=== PATIENT | male | born 1980 | race American Indian/Alaskan Native ===

== ENCOUNTER 2019-09-30 13:40 | Emergency (ER) | payer SELFPAY ==
--- NOTE | 2019-09-30 22:26 | Cat Scan Report ---
CT HEAD WITHOUT CONTRAST INDICATION / CLINICAL INFORMATION: Pt complains of right arm numbness. TECHNIQUE: All CT scans at this location are performed using CT dose reduction for ALARA by means of automated e xposure control. COMPARISON: None available. FINDINGS: HEMORRHAGE: None. EXTRA-AXIAL SPACES: Normal in size and morphology for the patient's age. VENTRICULAR SYSTEM: Normal in size and morphology for the patient's age. CEREBRAL PARENCHYMA: No significant abnormality. No acute territorial infarct. MIDLINE SHIFT OR HERNIATION: None. CEREBELLUM / BRAINSTEM: No significant abnormality. ORBITS: Normal as visualized. SOFT TISSUES of HEAD: No significant abnormality. CALVARIUM: No significant abnormality. PARANASAL SINUSES / MASTOID AIR CELLS: Normal as visualized. ADDITIONAL FINDINGS: None. IMPRESSION: 1. No acute intracranial abnormality. Signer Name: Clinton Otoole MD Signed: 09/30/2019 10:22 PM Workstation Name: [id number]
--- NOTE | 2019-09-30 22:26 | Emergency Department Report ---
ED Neuro Deficit HPI - General Chief Complaint: Neuro Symptoms/Deficit Stated Complaint: RIGHT ARM NUNB Time Seen by Provider: 09/30/19 21:33 Source: patient Mode of arrival: Ambulatory Limitations: No Limitations - History of Present Illness Initial Comments: 39-year-old male presents to ED with numbness to the right upper arm. Patient states symptoms began today around 12[address] pm [address] Patient denies any headache or extremity weakness. Patient denies any neck pain or recent injury. -: This afternoon Location: right arm History of same: No Severity: mild Quality: tingling Improves With: none Worsens With: none On Anticoagulants: No Associated Symptoms: denies: headaches, weakness Treatments Prior to Arrival: none - Related Data Allergies/Adverse Reactions: Allergies Allergy/AdvReac Type Severity Reaction Status Date / Time No Known Allergies Allergy Unverified 09/30/19 23:25 ED Review of Systems ROS: Stated complaint: RIGHT ARM NUNB Other details as noted in HPI Comment: All other systems reviewed and negative Neurological: paresthesias. denies: headache, weakness ED Past Medical Hx - Past Medical History Previous Medical History?: No - Surgical History Past Surgical History?: No ED Neuro Physical Exam - General Limitations: No Limitations General appearance: alert, in no apparent distress Suspected Stroke: No - Head Head exam: Present: atraumatic, normocephalic - Eye Eye exam: Present: normal appearance, EOMI - ENT ENT exam: Present: mucous membranes moist - Neck Neck exam: Present: normal inspection, tenderness (Mild, midline posterior) - Respiratory Respiratory exam: Present: normal lung sounds bilaterally. Absent: respiratory distress - Cardiovascular Cardiovascular Exam: Present: regular rate, normal rhythm - GI/Abdominal GI/Abdominal exam: Absent: distended - Extremities Exam Extremities exam: Present: normal inspection, full ROM - Neurological Exam Neurological exam: Present: alert, oriented X3, CN II-XII intact, motor sensory deficit (Patient reports numbness to lateral right upper arm from the shoulder down to the elbow; strength 5/5) - NIHSS Assessment Interval: Baseline 1a. Level of Consciousness: alert/keenly responsive 1b. LOC Questions: answers both correctly 1c. LOC Commands: performs tasks correctly 2. Best Gaze: normal 3. Visual: no visual loss 4. Facial Palsy: normal symmetrical movement 5b. Motor Arm Right: no drift 5a. Motor Arm Left: no drift 6a. Motor Leg Left: no drift 6b. Motor Leg Right: no drift 7. Limb Ataxia: absent 8. Sensory: mild/moderate sensory loss 9. Best Language: no aphasia 10. Dysarthria: normal 11. Extinction/Inattention: no abnormality Total Score: 1 Stroke Severity: Minor Stroke - Psychiatric Psychiatric exam: Present: normal affect, normal mood - Skin Skin exam: Present: warm, dry, intact, normal color ED Course Vital Signs 09/30/19 14:27 Temperature 98.7 F Pulse Rate 74 Respiratory 16 Rate Blood Pressure 109/69 O2 Sat by Pulse 97 Oximetry - Radiology Data Radiology results: report reviewed, image reviewed - Medical Decision Making 39-year-old male with right lateral upper arm paresthesias. Strength is intact, 5/5. Low suspicion for CVA. CT head and CT C-spine negative. Outpatient follow-up advised. Return precautions given. - Differential Diagnosis Cervical radiculopathy, peripheral neuropathy Critical care attestation.: If time is entered above; I have spent that time in minutes in the direct care of this critically ill patient, excluding procedure time. ED Disposition Clinical Impression: Cervical radiculopathy, Paresthesias Disposition: TO HOME OR SELFCARE Is pt being admited?: No Condition: Stable Instructions: Paresthesia (ED), Cervical Radiculopathy (ED) Referrals: JODY COVINGTON MD [Primary Care Provider] - 3-5 Days [facility] [Provider Group] - 3-5 Days CAITLYN TAYLOR DO [Staff Physician] - 3-5 Days EMILY COLVIN MD [Referring] - 3-5 Days Time of Disposition: 22:34
--- NOTE | 2019-09-30 22:29 | Cat Scan Report ---
CT CERVICAL SPINE WITHOUT CONTRAST INDICATION: Pt complains of right arm numbness. TECHNIQUE: All CT scans at this location are performed using CT dose reduction for ALARA by means of automated e xposure control. Axial CT images were obtained through the cervical spine. Sagittal and coronal reformatted images we re produced. COMPARISON: None available. FINDINGS: Fracture: None. Subluxation: None. Spinal canal: No significant compromise. Disc spaces: Normal. Facet joints: Normal. Paraspinal soft tissues: No soft tissue swelling. Normal. Additional findings: None. Lung apices: Normal. IMPRESSION: 1. No acute findings. Signer Name: Clinton Otoole MD Signed: 09/30/2019 10:25 PM Workstation Name: [id number]
[2019-10-01 07:23] VITALS: BP 122/63
== END 2019-09-30 23:22 | disposition home or self-care (01) ==
LOC: ED 13:40
DX: M54.12 Radiculopathy, cervical region (principal); R20.0 Anesthesia of skin
CPT/HCPCS: 70450; 72125